=== PATIENT | female | born 1995 | race Caucasian/White ===

== ENCOUNTER 2021-04-10 16:06 | Outpatient (CLI) | payer MEDICAID ==
[~2021-04-10 16:06] MED LIST: CLON-527 PO
== END 2021-04-10 23:59 | disposition home or self-care (01) ==
LOC: LAB 16:06
PROVIDERS: ATTEND Registered Nurse General Practice
DX: F11.20 Opioid dependence, uncomplicated (principal)
CPT/HCPCS: 93005

== ENCOUNTER 2022-06-18 12:31 | Outpatient (CLI) | payer MEDICAID | END 2022-06-18 23:59 | disposition home or self-care (01) | LOC: RAD 12:31 | PROVIDERS: ATTEND General Practice | DX: I49.8 Other specified cardiac arrhythmias (principal) | CPT/HCPCS: 93005 ==

== ENCOUNTER 2022-12-26 15:04 | Emergency (ER) | payer MEDICAID ==
[~2022-12-26] VITALS: Ht 160 cm; Wt 68.2 kg
[2022-12-26 15:42] VITALS: BP 122/78; PULSE 79; RESP 17; TEMP 98.5; O2SAT 97
== END 2022-12-26 16:18 ==
LOC: ER 15:05 → EEVIPCON 15:05 → ER 16:18
DX: F31.9 Bipolar disorder, unspecified; F15.10 Other stimulant abuse, uncomplicated; F11.10 Opioid abuse, uncomplicated; Z59.00 Homelessness unspecified; Z91.040 Latex allergy status; Z88.8 Allergy status to other drugs, medicaments and biological substances
CPT/HCPCS: 99283

== ENCOUNTER 2023-02-21 15:45 | Outpatient (CLI) | payer MEDICAID | END 2023-02-21 23:59 | disposition home or self-care (01) | LOC: RAD 15:45 | PROVIDERS: ATTEND Physician Assistant | DX: F11.20 Opioid dependence, uncomplicated (principal) | CPT/HCPCS: 93005 ==

== ENCOUNTER 2024-11-19 10:06 | Outpatient (CLI) | payer MEDICAID ==
--- NOTE | 2024-11-19 11:36 | ELECTROCARDIOGRAPH REPORT ---
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 ARIANNA Broussard Measurements Intervals [place] Rate: 65 P: 46 CA: 136 QRS: 55 QRSD: 81 T: 48 QT: 429 QTc: 447 Interpretive Statements Sinus rhythm Electronically Signed On 11-19-2024 15:51:[address] ARIANNA Broussard Please click the below link to view image of tracing.
== END 2024-11-19 23:59 | disposition home or self-care (01) ==
LOC: RAD 10:06
PROVIDERS: ATTEND Physician Assistant
DX: F11.20 Opioid dependence, uncomplicated (principal); I49.8 Other specified cardiac arrhythmias
CPT/HCPCS: 93005